=== PATIENT | female | born 1945 | race Caucasian/White ===

== ENCOUNTER → 2016-07-04 | Outpatient (CLI) | payer OTHER, MEDICARE | LOC: BMCIMAGING 14:40 | DX: Z12.31 Encounter for screening mammogram for malignant neoplasm of breast (principal); Z80.3 Family history of malignant neoplasm of breast | CPT/HCPCS: G0202 ==

== ENCOUNTER → 2017-04-28 | Outpatient (CLI) | payer OTHER, MEDICARE | LOC: FIMAGING 09:46 | PROVIDERS: ATTEND Family Medicine | DX: Z13.820 Encounter for screening for osteoporosis (principal); M85.80 Other specified disorders of bone density and structure, unspecified site; G31.84 Mild cognitive impairment of uncertain or unknown etiology; R53.81 Other malaise; R53.83 Other fatigue; Z79.899 Other long term (current) drug therapy ==

== ENCOUNTER → 2017-07-19 | Outpatient (CLI) | payer OTHER, MEDICARE | LOC: BMCIMAGING 11:16 | PROVIDERS: ATTEND Family Medicine | DX: Z12.31 Encounter for screening mammogram for malignant neoplasm of breast (principal); Z80.3 Family history of malignant neoplasm of breast ==

== ENCOUNTER 2018-03-30 02:40 | Observation (INO) | payer OTHER, MEDICARE ==
[2018-03-30] MEDS ORDERED: NS 1,000 ML IV ONE (02:48)
--- NOTE | 2018-03-30 02:48 | EDPHY ---
H & P Stated Complaint: Poss kidney stone, L flank pain x2 hours Time Seen by Provider: 03/30/18 02:48 HPI/ROS: HPI CHIEF COMPLAINT: Left flank pain. Woke from sleep. HISTORY OF PRESENT ILLNESS: This is a 72-year-old female she arrives to the emergency room by private vehicle left flank pain. She states this started half an hour prior to arrival. Patient reports this woke from sleep sharp stabbing left flank radiating to her left lower abdomen. Associated nausea but no vomiting. Denies fever, denies chest pain or shortness of breath, denies pleuritic pain. Main complaint left flank pain. Past Medical History: Hypertension, hyperlipidemia Past Surgical History: Social History: Denies drugs alcohol tobacco. Retired. Family History: Noncontributory ROS REVIEW OF SYSTEMS: 10 Systems were reviewed and negative with the exception of the elements mentioned in the history of present illness. Exam Constitutional triage nursing summary reviewed, vital signs reviewed, awake/ alert. Eyes normal conjunctivae and sclera, EOMI, PERRLA. HENT normal inspection, atraumatic, moist mucus membranes, no epistaxis, neck supple/ no meningismus, no raccoon eyes. Respiratory clear to auscultation bilaterally, normal breath sounds, no respiratory distress, no wheezing. Cardiovascular rate normal, regular rhythm, no murmur, no edema, distal pulses normal. Gastrointestinal soft, non-tender, no rebound, no guarding, normal bowel sounds, no distension, no pulsatile mass. Genitourinary mild tender palpation left CVA Musculoskeletal no midline vertebral tenderness, full range of motion, no calf swelling, no tenderness of extremities, no meningismus, good pulses, neurovascularly intact. Skin pink, warm, & dry, no rash, skin atraumatic. Neurologic awake, alert and oriented x 3, AAOx3, moves all 4 extremities equally, motor intact, sensory intact, CN II-XII intact, normal cerebellar, normal vision, normal speech. Psychiatric normal mood/affect. Heme/Lymph/Immune no lymphadenopathy. Differential Diagnosis: Differential diagnosis includes but is not limited to and in no particular order: Bowel obstruction, appendicitis, gallbladder disease, diverticulitis, colitis, enteritis, perforated viscus, gastritis, GERD , esophagitis, urinary tract infection, pyelonephritis, kidney stones Medical Decision Making: Plan for this patient IV establishment IV fluid bolus IV Dilaudid for pain control IV Zofran for nausea, CT scan abdomen pelvis without contrast for flank pain, check UA. Re-evaluation: Urinalysis reviewed patient is nitrite positive. No red blood cells. However given UTI will proceed with CT scan abdomen pelvis without due to flank pain. Make sure patient does not have infected stone. IV Rocephin has been ordered for the UTI. CT scan abdomen pelvis without contrast called to me by Dr. Mckeon: Left pleural effusion, left infiltrate. Coronary disease seen on CT scan. No obstructive kidney stones. No kidney stones visualized. EKG interpretation by me on record in [facility] system. Impression time of EKG 3:43 a.m., sinus rhythm rate of 67 without any signs of acute ischemia no ST elevation no ST depression no T-wave abnormalities. Nonischemic EKG. This EKG was performed due to left flank pain. She does not have any chest pain or shortness of breath. Updated patient about CT results. Pulse ox was 86% on room air with good waveform I was talking to her. She is getting IV fluids with may be contributing to her left lower lobe pneumonia with pleural effusion. This is what most likely is causing her hypoxia. Will send D-dimer to make sure she does have a pulmonary infarct. CT scan results show no evidence of stroke obstructive uropathy or kidney stone. Plan for supplemental oxygen IV fluids. Patient received IV Rocephin for UTI. Patient is a D-dimer that is positive, additionally the patient has pleuritic pain left-sided inspiratory. CT scan of the abdomen pelvis without contrast for flank pain shows a left lung infiltrate. Given the positive D-dimer and inspiratory chest pain wonder if this is along infarct. Will proceed with CT angiogram to rule out pulmonary embolism. CT angiogram of the chest shows left lower lobe pulmonary embolism. Patient has a pulmonary embolism left lower lobe with pulmonary infarct. The patient be given Lovenox her creatinine is normal. Patient be admitted the hospitalist service I spoke with Dr. Chaparro who agrees to admit. Source: Patient - Personal History Current Tetanus Diphtheria and Acellular Pertussis (TDAP): Yes - Medical/Surgical History Hx Asthma: No Hx Chronic Respiratory Disease: No Hx Diabetes: No Hx Cardiac Disease: No Hx Renal Disease: No Hx Cirrhosis: No Hx Alcoholism: No Hx HIV/AIDS: No Hx Splenectomy or Spleen Trauma: No Other PMH: HTN - Social History Smoking Status: Never smoked Constitutional: Initial Vital Signs Temperature (C) 36.8 C 03/30/18 02:41 Heart Rate 72 03/30/18 02:41 Respiratory Rate 17 03/30/18 02:41 Blood Pressure 150/67 H 03/30/18 02:41 O2 Sat (%) 96 03/30/18 02:41 O2 Delivery Mode Room Air O2 (L/minute) 1 Allergies/Adverse Reactions: No Known Allergies Allergy (Verified 03/30/18 09:34) Home Medications: Medication Instructions Recorded Cephalexin [Keflex] 500 mg PO Q6H #28 cap 03/30/18 Donepezil HCl [Aricept 5 MG (*)] 5 mg PO HS 03/30/18 Herbals/Supplements -Info Only 1 ea PO DAILY 03/30/18 Lisinopril [Zestril 5 mg (*)] 5 mg PO DAILY 03/30/18 Phenazopyridine HCl [Pyridium] 200 mg PO TID #15 tab 03/30/18 SIMVASTATIN 03/30/18 traZODone [traZODONE 50MG (*)] 50 mg PO HS 03/30/18 Medical Decision Making - Data Points Laboratory Results: Laboratory Results 03/30/18 03:05 03/30/18 03:05 Medications Given: Acetaminophen (Tylenol) 650 mg PO Q4HRS PRN PRN Reason: Pain, Mild/Fever, Can Take PO Stop: 09/26/18 06:06 Last Admin: 03/30/18 19:51 Dose: 650 mg Hydrocodone Bitart/Acetaminophen ([place] 5/325) 2 tab PO Q4HRS PRN PRN Reason: Pain, Moderate Able to Take PO Stop: 04/09/18 11:43 Last Admin: 03/30/18 11:48 Dose: 2 tab Apixaban (Eliquis) 10 mg PO BID [facility] Stop: 09/26/18 20:59 Last Admin: 03/30/18 19:52 Dose: 10 mg Donepezil HCl (Aricept) 5 mg PO HS [facility] Stop: 09/26/18 20:59 Last Admin: 03/30/18 20:50 Dose: 5 mg Trazodone HCl (Trazodone) 50 mg PO HS [facility] Stop: 09/26/18 20:59 Last Admin: 03/30/18 19:53 Dose: 50 mg Discontinued Medications Enoxaparin Sodium (Lovenox) 70 mg SC EDNOW ONE Stop: 03/30/18 06:07 Last Admin: 03/30/18 07:56 Dose: Not Given Enoxaparin Sodium (Lovenox) 70 mg SC EDNOW ONE Stop: 03/30/18 06:16 Last Admin: 03/30/18 06:17 Dose: 70 mg Hydromorphone HCl (Dilaudid) 0.5 mg IVP EDNOW ONE Stop: 03/30/18 03:22 Last Admin: 03/30/18 03:33 Dose: 0.5 mg Sodium Chloride (Ns) 1,000 mls @ 0 mls/hr IV EDNOW ONE; Wide Open PRN Reason: Protocol Stop: 03/30/18 02:49 Last Admin: 03/30/18 03:04 Dose: 1,000 mls Ceftriaxone Sodium/Dextrose (Rocephin 1 Gm (Premix)) 50 mls @ 100 mls/hr IV EDNOW ONE PRN Reason: Protocol Stop: 03/30/18 03:49 Last Admin: 03/30/18 03:27 Dose: 50 mls Ondansetron HCl (Zofran) 4 mg IVP EDNOW ONE Stop: 03/30/18 03:22 Last Admin: 03/30/18 03:33 Dose: 4 mg Point of Care Test Results: Chemistry 03/30/18 03:48 POC Troponin I 0.00 ng/mL ng/mL (0.00-0.08) Departure - Departure Disposition: [facility] Acute Clinical Impression: Hypoxia, Infarct of lung Urinary tract infection Qualifiers: Urinary tract infection type: acute cystitis Hematuria presence: with hematuria Qualified Code(s): N30.01 - Acute cystitis with hematuria Pulmonary emboli Qualifiers: Pulmonary embolism type: other Chronicity: acute Acute cor pulmonale presence: without acute cor pulmonale Qualified Code(s): I26.99 - Other pulmonary embolism without acute cor pulmonale Condition: Good
[2018-03-30 03:15] LABS: PLATELET COUNT 161 10^3/uL (150-400)
[2018-03-30] MEDS ORDERED: ONDANSETRON 4 MG/2 ML VIAL IVP ONE (03:21)
[2018-03-30] MEDS ORDERED: HYDROmorphONE/DILAUDID 2 MG/ML INJ IVP ONE (03:21)
[2018-03-30] MEDS ORDERED: IOPAMIDOL (ISOVUE 370) 100 ML BTL IV ONE (05:19)
[2018-03-30] MEDS ORDERED: ENOXAPARIN 60 MG/0.6 ML SYR SC ONE (06:06)
[2018-03-30] MEDS ORDERED: ONDANSETRON 4 MG/2 ML VIAL IVP PRN (06:07)
[2018-03-30] MEDS ORDERED: ONDANSETRON DISINTEGRATING 4 MG TAB PO PRN (06:07)
[2018-03-30] MEDS ORDERED: ENOXAPARIN 80 MG/0.8 ML SYR SC ONE (06:15)
--- NOTE | 2018-03-30 06:35 | PDGENHP ---
History and Physical - Chief Complaint L flank pain - History of Present Illness 72 yo F w/ hx of HTN presents with L flank pain. She noted the pain upon waking early this morning. She is tender in the left flank and the pain is also exacerbated by taking a deep breath. She denies infectious symptoms including fever, cough, and dysuria. In the ED abdominal CT did not reveal etiology but suggested L-sided effusion. D-dimer was elevated so CTA was pursued. This demonstrated peripheral LLL PE. The patient denies recent surgery, trauma, or immobility. She has no personal or family history of blood clots. She denies leg swelling. At the time of my evaluation she is breathing comfortably without distress. Her O2 sats are ~90 % on room air. She is hemodynamically stable and has no signs of R heart strain on laboratory work-up or ECG. Case discussed with ED physician Dr. Jordan; records reviewed and summarized above. History Information - Allergies/Home Medication List Allergies/Adverse Reactions: No Known Allergies Allergy (Unverified 03/30/18 02:46) Home Medications: Lisinopril 03/30/18 [Last Taken Unknown] SIMVASTATIN 03/30/18 [Last Taken Unknown] traZODone 03/30/18 [Last Taken Unknown] I have personally reviewed and updated: family history, medical history - Past Medical History hypertension, hyperlipidemia - Surgical History Reports: no pertinent surgical hx - Family History Additional family history: Denies family hx of blood clots - Social History Smoking Status: Never smoked Review of Systems Review of Systems: ROS: 10pt was reviewed & negative except for what was stated in HPI & below Physical Exam Physical Exam: Temp Pulse Resp BP Pulse Ox 36.8 C 62 18 113/62 91 L 03/30/18 02:41 03/30/18 06:00 03/30/18 06:00 03/30/18 06:00 03/30/18 06:00 Constitutional: no apparent distress, appears nourished Eyes: PERRL, EOMI Ears, Nose, Mouth, Throat: moist mucous membranes, no oral mucosal ulcers Cardiovascular: regular rate and rhythym, no murmur, rub, or gallop, No edema Respiratory: no respiratory distress, no rales or rhonchi Gastrointestinal: normoactive bowel sounds, soft, non-tender abdomen, other (L flank TTP) Skin: warm, normal color Musculoskeletal: full muscle strength, no muscle tenderness Neurologic: AAOx3, CN II-XII Intact Psychiatric: interacting appropriately, not anxious Lab Data & Imaging Review 03/30/18 03:05 03/30/18 03:05 WBC 8.26 10^3/uL (3.80-9.50) 03/30/18 03:05 RBC 4.57 10^6/uL (4.18-5.33) 03/30/18 03:05 Hgb 13.3 g/dL (12.6-16.3) 03/30/18 03:05 Hct 40.3 % (38.0-47.0) 03/30/18 03:05 MCV 88.2 fL (81.5-99.8) 03/30/18 03:05 MCH 29.1 pg (27.9-34.1) 03/30/18 03:05 MCHC 33.0 g/dL (32.4-36.7) 03/30/18 03:05 RDW 14.0 % (11.5-15.2) 03/30/18 03:05 Plt Count 161 10^3/uL (150-400) 03/30/18 03:05 MPV 12.2 fL (8.7-11.7) H 03/30/18 03:05 Neut % (Auto) 70.7 % (39.3-74.2) 03/30/18 03:05 Lymph % (Auto) 18.2 % (15.0-45.0) 03/30/18 03:05 [place] % (Auto) 9.1 % (4.5-13.0) 03/30/18 03:05 Eos % (Auto) 1.1 % (0.6-7.6) 03/30/18 03:05 Baso % (Auto) 0.5 % (0.3-1.7) 03/30/18 03:05 Nucleat RBC Rel Count 0.0 % (0.0-0.2) 03/30/18 03:05 Absolute Neuts (auto) 5.85 10^3/uL (1.70-6.50) 03/30/18 03:05 Absolute Lymphs (auto) 1.50 10^3/uL (1.00-3.00) 03/30/18 03:05 Absolute Monos (auto) 0.75 10^3/uL (0.30-0.80) 03/30/18 03:05 Absolute Eos (auto) 0.09 10^3/uL (0.03-0.40) 03/30/18 03:05 Absolute Basos (auto) 0.04 10^3/uL (0.02-0.10) 03/30/18 03:05 Absolute Nucleated RBC 0.00 10^3/uL (0-0.01) 03/30/18 03:05 Immature Gran % 0.4 % (0.0-1.1) 03/30/18 03:05 Immature Gran # 0.03 10^3/uL (0.00-0.10) 03/30/18 03:05 D-Dimer 0.86 ug/mLFEU (0.00-0.50) H 03/30/18 03:05 Sodium 141 mEq/L (135-145) 03/30/18 03:05 Potassium 4.3 mEq/L (3.3-5.0) 03/30/18 03:05 Chloride 108 mEq/L (97-110) 03/30/18 03:05 Carbon Dioxide 27 mEq/l (22-31) 03/30/18 03:05 Anion Gap 6 mEq/L (6-14) 03/30/18 03:05 BUN 18 mg/dL (7-23) 03/30/18 03:05 Creatinine 0.9 mg/dL (0.6-1.0) 03/30/18 03:05 Estimated GFR > 60 03/30/18 03:05 Glucose 123 mg/dL (70-100) H 03/30/18 03:05 Calcium 9.3 mg/dL (8.5-10.4) 03/30/18 03:05 Total Bilirubin 0.4 mg/dL (0.1-1.4) 03/30/18 03:05 Conjugated Bilirubin 0.1 mg/dL (0.0-0.5) 03/30/18 03:05 Unconjugated Bilirubin 0.3 mg/dL (0.0-1.1) 03/30/18 03:05 AST 20 IU/L (14-46) 03/30/18 03:05 ALT 23 IU/L (9-52) 03/30/18 03:05 Alkaline Phosphatase 73 IU/L (38-126) 03/30/18 03:05 POC Troponin I 0.00 ng/mL (0.00-0.08) 03/30/18 03:48 NT-Pro-B Natriuret Pep 53 pg/mL (0-125) 03/30/18 03:05 Total Protein 6.6 g/dL (6.3-8.2) 03/30/18 03:05 Albumin 3.8 g/dL (3.5-5.0) 03/30/18 03:05 Lipase 91 IU/L (23-300) 03/30/18 03:05 Urine Color YELLOW 03/30/18 02:50 Urine Appearance HAZY 03/30/18 02:50 Urine pH 7.0 (5.0-7.5) 03/30/18 02:50 Ur Specific [place] 1.015 (1.002-1.030) 03/30/18 02:50 Urine Protein NEGATIVE (NEGATIVE) 03/30/18 02:50 Urine Ketones NEGATIVE (NEGATIVE) 03/30/18 02:50 Urine Blood NEGATIVE (NEGATIVE) 03/30/18 02:50 Urine Nitrate POSITIVE (NEGATIVE) H 03/30/18 02:50 Urine Bilirubin NEGATIVE (NEGATIVE) 03/30/18 02:50 Urine Urobilinogen NEGATIVE EU (0.2-1.0) 03/30/18 02:50 Ur Leukocyte Esterase 1+ (NEGATIVE) H 03/30/18 02:50 Urine RBC NONE SEEN /hpf (0-3) 03/30/18 02:50 Urine WBC 15-25 /hpf (0-3) H 03/30/18 02:50 Ur Epithelial Cells TRACE /lpf (NONE-1+) 03/30/18 02:50 Urine Bacteria TRACE /hpf (NONE SEEN) H 03/30/18 02:50 Urine Glucose NEGATIVE (NEGATIVE) 03/30/18 02:50 Imaging Review: CTA PE Prelim: Filling defects in periferal LLL pulmonary artery branches c/w PE Pleural effusion and LLL opacity Coronary artery calcs Called to ER @ 0555 Visualized and Interpreted EKG results: Yes EKG Interpretation: Positive for: normal sinsus rhythm Assessment & Plan Assessment: 72 yo F w hx of HTN presents with pulmonary embolism. Plan: 1. Pulmonary embolism - Unprovoked; she has no personal or family hx of blood clots. She is hemodynamically stable with no signs of R heart strain at this time. She is borderline hypoxic but not yet requiring supplemental O2. PESI score of 71 denoting low risk. L pleural effusion and pain suggestive of likely pulmonary infarct. - Admit for observation - Monitor on telemetry - O2 if sats <89% - LMWH 1 mg/kg q12h initially 2. HTN - Hold medications noting above; restart as indicated 3. HLD - Continue statin Diet - Regular Code - Full Ppx - LMWH Dispo - Admit under observation status
[2018-03-30] MEDS ORDERED: HYDROCODONE/APAP 5/325 TAB PO PRN (11:44)
--- NOTE | 2018-03-30 12:33 | HOSPPROG ---
Hospitalist Progress Note Assessment/Plan: 72 yo F w hx of HTN presents with pulmonary embolism. First encounter, chart reviewed. *PE -having significant pain to her left side, has a pleural effusion -on LMWH -will start her on an oral agent (Eliquis) -CM to give her a month trial of OAC and she will verify w her insurance if this is covered *left pleural effusion -suspect this is what is causing some of the left sided pain *HTN -lisinopril *HLD -statin *Plan: will monitor overnight, cont to have significant pain w any deep breath on her left side. Will get an echo for further evaluation. >30 minutes w following up with patient and her and evaluation. Subjective: Lynn has pain w any deep breath. This is on her left lower lung area, rib area. Objective: Vital Signs Temp Pulse Resp BP Pulse Ox 36.9 C 62 22 H 106/59 L 90 L 03/30/18 11:26 03/30/18 11:26 03/30/18 11:26 03/30/18 11:26 03/30/18 11:26 03/29/18 03/30/18 03/31/18 05:59 05:59 05:59 Intake Total 1000 Balance 1000 - Physical Exam Constitutional: uncomfortable, No not in pain Eyes: PERRL Ears, Nose, Mouth, Throat: hearing normal Cardiovascular: regular rate and rhythym Respiratory: no respiratory distress, reduced air movement, aegophony (on left base) Skin: warm Musculoskeletal: full muscle strength Neurologic: AAOx3 Psychiatric: interacting appropriately ICD10 Worksheet Patient Problems: Problems Problem Status Onset Hypoxia Acute Infarct of lung Acute Pulmonary emboli Acute Urinary tract infection Acute
--- NOTE | 2018-03-30 12:40 | ASMTCMCOM ---
CM Note CM Note Notes: Pt is a 72 y/o female admitted for left flank pain. Pt will most likely d/c independent when medically stable. No therapies ordered at this time. CM available for changes. Plan: Independent Date Signed: 03/30/2018 12:39 PM Electronically Signed By:PEEWEE Summers
--- NOTE | 2018-03-30 14:51 | ASMTCMCOM ---
CM Note CM Note Notes: CM spoke to Araceli Olvera NP. Pt will need to be on eliquis. CM spoke to Kayleigh malloy/ pharmacy. Kayleigh provided CM 30 day free eliquis card and provided it to pt. Pt will call her insurance to see how much it will case. No other needs at this time. CM available for changes. Date Signed: 03/30/2018 02:50 PM Electronically Signed By:PEEWEE Summers
[2018-03-30] MEDS: ACETAMINOPHEN 325 MG TAB PO PRN (19:51)
[2018-03-30] MEDS: APIXABAN 5 MG TAB PO SCH (19:52)
[2018-03-30] MEDS ORDERED: DONEPEZIL HCL 5 MG TAB PO SCH (21:00)
[2018-03-30] MEDS ORDERED: traZODone 50 MG TAB PO SCH (21:00)
--- NOTE | 2018-03-31 06:17 | CPEKG ---
Test Reason : OPEN Blood Pressure : / mmHG Vent. Rate : 067 BPM Atrial Rate : 068 BPM P-R Int : 186 ms QRS Dur : 090 ms QT Int : 400 ms P-R-T Axes : 061 -05 012 degrees QTc Int : 423 ms Sinus rhythm Confirmed by Robbie German ([id number]) on 03/31/2018 6:16:10 AM Referred By: Confirmed By:Robbie German
[2018-03-31] MEDS: ACETAMINOPHEN 325 MG TAB PO PRN (07:25)
[2018-03-31] MEDS: APIXABAN 5 MG TAB PO SCH (08:47)
[2018-03-31] MEDS ORDERED: Herbals/Supplements -Info Only PO SCH (09:00)
[2018-03-31] MEDS ORDERED: LISINOPRIL 5 MG TAB PO SCH (09:00)
--- NOTE | 2018-03-31 11:39 | HOSPPROG ---
Hospitalist Progress Note Assessment/Plan: 72 yo F w hx of HTN presents with pulmonary embolism. First encounter, chart reviewed. *PE -left sided pain is better -will start her on an oral agent (Eliquis) -CM to give her a month trial of OAC and she will verify w her insurance if this is covered *left pleural effusion -suspect this is what is causing some of the left sided pain (this is better today) -not a concern for a pneumonia a this time, she has no cough, no fever, no increase in wbc *possible UTI -having some left upper quadrant pain, has + pyuria -will do a 3 day treatment of Levaquin *HTN -lisinopril *HLD -statin *Plan: dc home w close f/u with Dr Khan Subjective: Lynn is feeling better today. Objective: Vital Signs Temp Pulse Resp BP Pulse Ox 37.1 C 64 18 145/79 H 96 03/31/18 07:17 03/31/18 07:17 03/31/18 07:17 03/31/18 08:47 03/31/18 07:17 03/30/18 03/31/18 04/01/18 05:59 05:59 05:59 Intake Total 1540 Output Total 350 Balance 1190 - Physical Exam Constitutional: no apparent distress, appears nourished, not in pain Eyes: PERRL Ears, Nose, Mouth, Throat: hearing normal Cardiovascular: regular rate and rhythym Respiratory: no respiratory distress, reduced air movement (left lower lung and right base) Gastrointestinal: normoactive bowel sounds Skin: warm Musculoskeletal: full muscle strength Neurologic: AAOx3 Psychiatric: interacting appropriately ICD10 Worksheet Patient Problems: Problems Problem Status Onset Hypoxia Acute Infarct of lung Acute Pulmonary emboli Acute Urinary tract infection Acute
--- NOTE | 2018-03-31 11:48 | ECHO ---
[email or web address] [address] Main: [phone] Fax: [email or web address] Echocardiogram Name: BONY KAY MR#: [id number] Study Date: 03/31/2018 Study Time: 09:01 AM Date of : 1945 Age: 72 year(s) Height: 177.8 cm (70 in.) Weight: 71.21 kg (157 lb.) BSA: 1.88 m2 Gender: Female Examination: Echo Indication: PE Image Quality: Good Contrast: Requested by: Araceli Olvera BP: / Heart Rate: Rhythm: Indication: PE Procedure Staff Dragger Out: Luda Lazar RDCS Reading Physician: Thang Bateman MD Requesting Provider: Conclusions: Global hypercontractility of the left ventricle. The ejection fraction is estimated to be 70-75 %. Normal diastolic LV function. Mild mitral valve regurgitation is present. The pulmonary artery pressure is mildly increased. Based on mild mitral regurgitation, a repeat echo may be considered in 3 years unless there is a change in clinical status. Measurements: Chambers Valvular Assessment AV/MV Valvular Assessment TV/PV Normal Normal Normal Name Value Range Name Value Range Name Value Range Ao [place] (MM): 2.9 cm (2.2 cm-3.7 AV Vmax: 1.70 m/s (1 m/s-1.7 TR Vmax: 3.01 mm/s ( - ) cm) m/s) TR PGmax: 36 mmHg ( - ) IVSd (2D): 0.9 cm (0.6 cm-1.1 AV meanP mmHg ( - ) syst. PAP: 41 mmHg ( - ) cm) MV E Vmax: 1.16 m/s ( - ) LVDd (2D): 4.2 cm (3.9 cm-5.3 MV A Vmax: 1.23 m/s ( - ) cm) MV E/A: 0.94 ( - ) LVDs (2D): 2.0 cm (2.1 cm-4 cm) LVPWd (2D): 0.9 cm ( - ) LVEF (MOD4): 74 % (>=55 %) EF Range: 70-75 % Continued Measurements: Chambers Valvular Assessment AV/MV Valvular Assessment TV/PV Name Value Name Value Name Value LADs: 3.5 cm MV E' Septal: 0.09 m/s CVP (est.): 5 mmHg LADs Lon.0 cm Patient: BONY KAY Study Date: 03/31/2018 Page 1 of 2 09:01 AM LA Area: 18.0 cm2 MV E/E' Septal: 12.30 MV E/E' Lateral: 14.20 Additional Vessels Name Value Ao Ascendin.1 cm Findings: Left Ventricle: Normal size left ventricle. No LV hypertrophy. Global hypercontractility of the left ventricle. The ejection fraction is estimated to be 70-75 %. No regional wall motion abnormality. Normal diastolic LV function. Right Ventricle: Normal size right ventricle. Left Atrium: The left atrium is normal in size. Right Atrium: The right atrium is normal in size. Mitral Valve: Mild mitral valve regurgitation is present. Aortic Valve: The aortic valve is normal in appearance and function. The aortic valve is tri-leaflet. Tricuspid Valve: The tricuspid valve is normal in appearance and function. Mild tricuspid regurgitation is present. The pulmonary artery pressure is mildly increased. RVSP is 41mmHG.. Pulmonic Valve: The pulmonic valve is normal in appearance and function. Aorta: The aorta is normal. Pericardium: No pericardial effusion. Exam Comments: (No Signature Object) Patient: BONY KAY Study Date: 03/31/2018 Page 2 of 2 09:01 AM [id number]
[2018-03-31 12:30] VITALS: BP 138/82
--- NOTE | 2018-03-31 13:24 | GDS ---
DISCHARGE DIAGNOSES: 1. Pulmonary emboli. 2. Left pleural effusion. 3. Possible urinary tract infection with associated pyuria. 4. Hypertension. 5. Hyperlipidemia. HISTORY OF PRESENT ILLNESS: Briefly, the patient is a 72-year-old female with a history of hypertension, who presented initially with left flank pain. She noted the pain when she was waking up in the morning. She was noted to be tender in the flank area and was also exacerbated by taking deep breaths. In the emergency department, an abdominal CT did not reveal any etiology but suggested a left-sided effusion. A D-dimer was elevated, so a CTA was performed. This showed peripheral left-sided pulmonary emboli. She was started on treatment dose of low molecular weight heparin and transitioned to Eliquis. HOSPITAL COURSE: 1. Pulmonary emboli. Suspect she had an infarct along with a pleural effusion because she was having significant pain on that side. It is much better today. She will continue Eliquis. 2. Left pleural effusion, not a concern for pneumonia at this time. She has no cough, no fever, or elevated white blood cell count. A procalcitonin level was checked and was low. Will recommend that she get a repeat chest x-ray in 1- 2 weeks. 3. Pyuria with possible symptoms of a urinary tract infection. Will do 3-day treatment of Levaquin and have her primary care provider follow up with her urine culture and sensitivities. 4. Hypertension, on lisinopril. 5. Hyperlipidemia, on statin therapy. DISCHARGE CONDITION: Stable. Blood pressure is 145/79, heart rate of 64, respiratory rate of 18, O2 sats on 2 L 96%, temperature 37.1 Celsius. DISCHARGE MEDICATIONS: Please see the EMR. DISCHARGE INSTRUCTIONS: 1. To stay well hydrated. 2. To return to the ER if she has worsening symptoms, including worsening flank pain, abdominal pain, vomiting, or fevers. 3. To see Dr. Khan in 1-2 weeks to get a repeat chest x-ray to make sure her pleural effusion is resolving. 4. To take Eliquis as prescribed. 5. While on the Levaquin, to be aware that this affects her Achilles tendon. If she has pain, to stop taking this medication. 6. Dr. Khan to follow up with her urine culture and sensitivities on Monday morning. 7. She has mild mitral regurgitation on the echocardiogram. Recommendation is repeat echo in 3 years. Copy requested to: Dr. Khan /[id number]/[id number]
== END 2018-03-31 13:49 | disposition home or self-care (01) ==
LOC: F2W 08:05
PROVIDERS: ADMIT Student in an Organized Health Care Education/Training Program; ATTEND Internal Medicine
DX: I26.99 Other pulmonary embolism without acute cor pulmonale (principal); J90 Pleural effusion, not elsewhere classified; N30.00 Acute cystitis without hematuria; E86.9 Volume depletion, unspecified; R09.02 Hypoxemia; I10 Essential (primary) hypertension; E78.5 Hyperlipidemia, unspecified; I25.10 Atherosclerotic heart disease of native coronary artery without angina pectoris
CPT/HCPCS: 71045; 71046; 71275; 74176; 93005; 93306; 96372; 96374; 96375; 99285; G0378; J0696; J1170; J1650; J2405; Q9967; 84484-PO

== ENCOUNTER → 2018-04-16 | Outpatient (CLI) | payer OTHER, MEDICARE | LOC: FIMAGING 14:39 | PROVIDERS: ATTEND Family Medicine | DX: R93.89 Abnormal findings on diagnostic imaging of other specified body structures (principal); Z86.711 Personal history of pulmonary embolism ==

== ENCOUNTER → 2018-04-18 | Outpatient (CLI) | payer OTHER, MEDICARE | LOC: FIMAGING 16:11 | PROVIDERS: ATTEND Family Medicine | DX: Z09 Encounter for follow-up examination after completed treatment for conditions other than malignant neoplasm (principal); Z86.711 Personal history of pulmonary embolism ==

== ENCOUNTER → 2018-08-06 | Outpatient (CLI) | payer OTHER, MEDICARE | LOC: BMCIMAGING 12:05 | PROVIDERS: ATTEND Family Medicine | DX: Z12.31 Encounter for screening mammogram for malignant neoplasm of breast (principal); Z80.3 Family history of malignant neoplasm of breast ==

== ENCOUNTER → 2018-08-28 | Outpatient (CLI) | payer OTHER, MEDICARE | LOC: BMCIMAGING 09:30 | PROVIDERS: ATTEND Family Medicine | DX: R92.0 Mammographic microcalcification found on diagnostic imaging of breast (principal) ==